=== PATIENT | male | born 1960 | race Caucasian/White ===

== ENCOUNTER 2021-02-07 16:37 | Emergency (ER) | payer OTHER, SELFPAY ==
[2021-02-07 16:46] VITALS: BP 165/90; PULSE 85; RESP 16; TEMP 36.6; O2SAT 96
--- NOTE | 2021-02-07 17:00 | ED_ITS ---
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 Patient notes some swelling to the palm of the left hand and some tenderness to the right thumb. Review of Systems General: Reports: 10 or more systems reviewed and unremarkable except in HPI and below Musc: Reports: other (Left hand injury) Physical Exam Const: COMMON NORMALS: no acute distress and patient oriented x3 GENERAL APPEARANCE: cooperative HENMT: COMMON NORMALS: normocephalic and Normal external nose present HEAD & SCALP: normal to inspection and normocephalic NOSE: Normal external nose present Eye: GENERAL EYE: appearance normal, both eyes and all related structures Neck/C-Spine: COMMON NORMALS: full ROM Chest: COMMONS NORMALS: normal inspection of the chest Resp: COMMON NORMALS: normal respiratory effort EFFORT & INSPECTION: Yes able to speak in complete sentences Cardio: COMMON NORMALS: regular rate and regular rhythm RATE: regular rate RHYTHM: regular rhythm GI: COMMON NORMALS: non-tender Extremity: NARRATIVE EXTREMITY EXAM: Swelling and tenderness noted to the left thenar area of the palm, cap refill and range of motion is intact to the thumb. Neuro: COMMON NORMALS: patient oriented x3 and moves all extremities Psych: COMMON NORMALS: mental status grossly normal and cooperative Skin: COMMON NORMALS: no rashes or lesions noted GENERAL SKIN EXAM: no rashes or lesions noted Course Vital Signs: Vital signs: Vital Signs Temperature 97.9 F 02/07/21 16:46 Pulse Rate 85 02/07/21 16:46 Respiratory Rate 16 02/07/21 16:46 Blood Pressure 165/90 02/07/21 16:46 Pulse Oximetry 96 02/07/21 16:46 MDM - Extremity (Nontraumatic) MDM Narrative: Medical decision making narrative: Patient comes into injury to the left thumb. It occurred this afternoon. On exam patient has tenderness to the base of the left thumb and thenar aspect of the palm of the left hand. Patient has normal range of motion, cap refill, and sensation. Differential diagnosis includes fracture, sprain, contusion. X-ray showed some arthritic changes but no acute fracture was noted. Radiology read for final interpretation. Patient was recommended to use acetaminophen or ibuprofen or ice packs for further discomfort. Patient reported understanding of care plan and need for follow-up or return. Discharge Plan Discharge Patient Disposition: Home Clinical Impression: Contusion of hand Qualifiers: Encounter type: initial encounter Laterality: left Qualified Code(s): S60.222A - Contusion of left hand, initial encounter Condition: Stable Discharge Orders: Discharge ED (Routine); Ordered 02/07/21 Ordered By: Felipe Goodwin Referrals: Mark Anthony White [Primary Care Provider] - Discharge Diet: Usual diet Discharge Activity: Increase activity as tolerated Patient Instructions: Opioid Safety Activity Restrictions/Additional Instructions: Use ice to the area for pain. Use acetaminophen or ibuprofen for further comfort relief. Activity as tolerated. Follow-up with primary care as needed. Return to the ER for new concerns. 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
--- NOTE | 2021-02-07 17:01 | XRR_ITS ---
PROCEDURE INFORMATION: Exam: XR Left Hand Exam date and time: 02/07/2021 5:01 PM Age: 60 years old Clinical indication: Injury or trauma; Other: Impact; Blunt trauma (contusions or hematomas); Left; Patient HX: C/O L hand/thumb pain after being hit by a spinning drill TECHNIQUE: Imaging protocol: XR Left hand. Views: 3 or more views. COMPARISON: No relevant prior studies available. FINDINGS: Bones/joints: No acute fracture. No dislocation. Normal bone mineralization. [id number] degenerative changes in the wrist and hand. Soft tissues: No soft tissue swelling. No radiopaque foreign body. Vasculature: Atherosclerotic changes in the visualized arteries. XR/XR hand LT min 3V* [id number] IMPRESSION: 1. No acute fracture. Followup imaging recommended in 7-14 days if clinical concern for fracture persists. 2. Incidental/nonacute findings are listed in the report. Radiation Dose CTDIVOL = (mGy): DLP = (mGy-cm)
== END 2021-02-07 17:55 | disposition home or self-care (01) ==
PROVIDERS: Emergency Provider Nurse Practitioner Family; PCP Family Medicine
DX: S60.222A Contusion of left hand, initial encounter (principal); W20.8XXA Other cause of strike by thrown, projected or falling object, initial encounter
CPT/HCPCS: 73130; 99283